=== PATIENT | female | born 1980 | race Caucasian/White ===

== ENCOUNTER 2023-07-21 10:57 | Emergency (ER) | payer SELFPAY ==
[~2023-07-21] VITALS: Ht 157.5 cm; Wt 57.6 kg
[2023-07-21] MEDS ORDERED: CLINDAMYCIN HC150 MG PO (13:07)
[2023-07-21] MEDS ORDERED: AMOXICILLIN500 MG PO (13:07)
[2023-07-21 13:23] VITALS: BP 134/80; PULSE 71; RESP 18; TEMP 98.8; O2SAT 98
== END 2023-07-21 13:33 | disposition home or self-care (01) ==
LOC: ER 11:23
DX: K08.89 Other specified disorders of teeth and supporting structures (principal)
CPT/HCPCS: 99282